=== PATIENT | male | born 1960 | race Two or more races ===

== ENCOUNTER → 2019-02-13 | Outpatient (CLI) | payer OTHER | END | disposition home or self-care (01) | LOC: RAD 10:06 | DX: I70.0 Atherosclerosis of aorta (principal) ==

== ENCOUNTER 2021-09-18 07:33 | Outpatient (CLI) | payer OTHER | END 2021-09-18 07:34 | disposition home or self-care (01) | LOC: SONOGRAMA 07:33 | PROVIDERS: ATTEND Internal Medicine Gastroenterology | DX: R16.0 Hepatomegaly, not elsewhere classified (principal) ==

== ENCOUNTER 2023-12-31 07:53 | Outpatient (CLI) | payer OTHER | END 2023-12-31 08:11 | disposition home or self-care (01) | LOC: TOM 07:53 | PROVIDERS: ATTEND Internal Medicine | DX: I71.9 Aortic aneurysm of unspecified site, without rupture (principal) | CPT/HCPCS: 71275 ==